=== PATIENT | male | born 1950 | race African-American/Black ===

== ENCOUNTER 2017-07-16 18:46 | Inpatient (IN) | payer OTHER ==
[~2017-07-16] VITALS: Ht 170.2 cm; Wt 63.0 kg
[2017-07-16] MEDS ORDERED: QUET50TA PO (19:03)
[2017-07-16] MEDS ORDERED: ONDA4TAB5 PO (19:03)
[2017-07-16] MEDS ORDERED: TAMS-3 PO (19:03)
[2017-07-16] MEDS ORDERED: HYDR-3326 PO (19:03)
[2017-07-16] MEDS ORDERED: ASPI81TA31 PO (19:03)
[2017-07-16] MEDS ORDERED: OLAN7.5T3 PO (19:03)
[2017-07-16] MEDS ORDERED: ALLO100T PO (19:03)
[2017-07-16] MEDS ORDERED: CARI350T PO (19:03)
--- NOTE | 2017-07-16 19:28 | NUR ---
SILVINO KAHN CLEARED BY DR CALVO
[2017-07-16] MEDS ORDERED: OXYCODONE/APAP 5-325 MG TABLET PO ONE (19:30)
[2017-07-16] MEDS ORDERED: OXYCODONE/APAP 5-325 MG TABLET ONE (19:49)
--- NOTE | 2017-07-16 20:20 | NUR ---
TRANSFERED TO [facility] VIA [facility] VIA WHEELCHAIR. NO DISTRESS NOTED
[2017-07-16 20:30] VITALS: BP 130/81
[2017-07-16] MEDS ORDERED: MAGNESIUM HYDROXIDE 30 ML LIQUID UDC PO PRN (20:30)
[2017-07-16] MEDS ORDERED: ACETAMINOPHEN 325 MG TABLET PO PRN (20:30)
[2017-07-16] MEDS ORDERED: CLONAZEPAM 0.5 MG TABLET PO SCH (20:30)
[2017-07-16] MEDS ORDERED: MAG HYDROX/AL HYDROX/SIMETH 30 ML LIQUID UDC PO PRN (20:30)
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
[2017-07-16] MEDS ORDERED: HYDROCODONE/APAP 5-325MG TABLET PO PRN (22:45)
--- NOTE | 2017-07-17 06:00 | NUR ---
slept 7.75 hours. assisted with AM care, and shower. no distress noted.
[2017-07-17 07:30] VITALS: BP 128/72
[2017-07-17 07:42] LABS: BASOPHILS % (AUTO) 0.7 % (0.0-2.0); EOSINOPHILS # (AUTO) 0.3 K/uL (0.0-0.7); EOSINOPHILS % (AUTO) 7.9 % (0.0-7.0); HEMATOCRIT 40.2 % (36.7-47.1); HEMOGLOBIN 13.7 g/dL (12.5-16.3); LYMPHOCYTES # (AUTO) 1.6 K/uL (20.0-40.0); LYMPHOCYTES % (AUTO) 39.5 % (20.5-51.5); MEAN CORPUSCULAR HEMOGLOBIN 32.1 uug (23.8-33.4); MEAN CORPUSCULAR HGB CONC 34 g/dL (32.5-36.3); MEAN CORPUSCULAR VOLUME 94.6 fL (73.0-96.2); MONOCYTES # (AUTO) 0.3 K/uL (2.0-10.0); MONOCYTES % (AUTO) 7.9 % (0.0-11.0); NEUTROPHILS # (AUTO) 1.8 K/uL (1.8-8.9); PLATELET COUNT (AUTO) 221 K/uL (152-348); RED BLOOD CELL COUNT(AUTO) 4.25 MIL/uL (4.06-5.63); WHITE BLOOD COUNT (AUTO) 4.1 K/uL (3.6-10.2)
[2017-07-17] MEDS: ASPIRIN 81 MG TAB.CHEW PO SCH (08:02)
[2017-07-17] MEDS: ALLOPURINOL 100 MG TABLET PO SCH (08:02)
[2017-07-17 08:19] LABS: BILIRUBIN,TOTAL 0.3 mg/dL (0.2-1.0); CREATININE 1.1 mg/dL (0.6-1.3); MAGNESIUM 1.6 mg/dL (1.8-2.4); POTASSIUM 3.9 mmol/L (3.5-5.1); TOTAL PROTEIN, SERUM 7.2 g/dL (6.4-8.2)
[2017-07-17] MEDS ORDERED: MAGNESIUM OXIDE 400 MG TABLET PO ONE (10:15)
[2017-07-17] MEDS ORDERED: BENZOCAINE/MENTH/CETYLPYRD LOZENGE MM PRN (14:00)
[2017-07-17] MEDS ORDERED: MAGNESIUM HYDROXIDE 30 ML LIQUID UDC PO ONE (14:00)
[2017-07-17 14:13] LABS: THYROID STIMULATING HORMONE 1.198 mIU/mL (0.358-3.740)
[2017-07-17 15:11] VITALS: BP 113/68
[2017-07-17] MEDS: ESCITALOPRAM OXALATE 10 MG TABLET PO SCH (15:11)
[2017-07-17] MEDS: NICOTINE 21 MG/24HR PATCH TD SCH (15:11)
[2017-07-17] MEDS: DOCUSATE SODIUM 100 MG CAPSULE PO SCH ×2 (15:12→20:48)
[2017-07-17] MEDS: HYDROCODONE/APAP 10-325 MG TABLET PO PRN ×2 (15:19→23:28)
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
[2017-07-17] MEDS ORDERED: CARISOPRODOL 350 MG TABLET PO PRN (18:00)
[2017-07-17 20:06] VITALS: BP 104/71
[2017-07-17 20:45] VITALS: BP 120/81
[2017-07-17] MEDS: ATORVASTATIN 10 MG TABLET PO SCH (20:47)
[2017-07-17] MEDS: TAMSULOSIN HCL 0.4 MG CAP.SR.24H PO SCH (20:47)
[2017-07-17] MEDS: OLANZAPINE 2.5 MG TABLET PO SCH (20:49)
--- NOTE | 2017-07-17 22:00 | NUR ---
received to care, watching tv in the activity room, minimally interactive, but able to make his needs known. compliant with medications, and staff direction. denies SI, or desire to harm self. as of 2199, he remains awake, watching tv. no distress noted.
--- NOTE | 2017-07-17 23:28 | NUR ---
remains awake. c/o 8/10 pain to lower back. PRN norco was given, and he went to bed. will continue to monitor closely.
--- NOTE | 2017-07-18 00:10 | NUR ---
appears to be asleep. no distress noted.
--- NOTE | 2017-07-18 06:00 | NUR ---
slept 6.5 hours, total. continues to sleep. no distress noted.
[2017-07-18 07:30] VITALS: BP 100/83
[2017-07-18] MEDS: NICOTINE 21 MG/24HR PATCH TD SCH ×2 (08:13→09:00)
[2017-07-18] MEDS: ESCITALOPRAM OXALATE 10 MG TABLET PO SCH (08:13)
[2017-07-18] MEDS: DOCUSATE SODIUM 100 MG CAPSULE PO SCH ×2 (08:13→20:24)
[2017-07-18] MEDS: ASPIRIN 81 MG TAB.CHEW PO SCH (08:13)
[2017-07-18] MEDS: ALLOPURINOL 100 MG TABLET PO SCH (08:13)
[2017-07-18] MEDS: HYDROCODONE/APAP 10-325 MG TABLET PO PRN ×4 (08:21→15:54)
[2017-07-18] MEDS: CHOLECALCIFEROL 1,000 UNIT TABLET PO SCH (12:08)
[2017-07-18 16:00] VITALS: BP 104/60
[2017-07-18] MEDS: OLANZAPINE 2.5 MG TABLET PO SCH (20:20)
[2017-07-18] MEDS: TAMSULOSIN HCL 0.4 MG CAP.SR.24H PO SCH (20:21)
[2017-07-18] MEDS: ATORVASTATIN 10 MG TABLET PO SCH (20:21)
[2017-07-18] MEDS: CARISOPRODOL 350 MG TABLET PO SCH (20:21)
[2017-07-18 20:41] VITALS: BP 112/67
--- NOTE | 2017-07-18 22:00 | NUR ---
received to care, lying in bed, pleasant upon approach. denies SI, or desire to harm self. c/o 8 lower back pain. routine soma dose was given at bedtime, and, as of 2200, he appears asleep. no distress noted. will continue to monitor closely.
--- NOTE | 2017-07-19 06:00 | NUR ---
slept 9.5 hours, total. continues to sleep. no distress noted.
[2017-07-19 07:30] VITALS: BP 125/78
[2017-07-19] MEDS: NICOTINE 21 MG/24HR PATCH TD SCH (08:49)
[2017-07-19] MEDS: ASPIRIN 81 MG TAB.CHEW PO SCH (08:50)
[2017-07-19] MEDS: HYDROCODONE/APAP 10-325 MG TABLET PO PRN ×3 (08:50→21:39)
[2017-07-19] MEDS: ESCITALOPRAM OXALATE 10 MG TABLET PO SCH (08:50)
[2017-07-19] MEDS: CHOLECALCIFEROL 1,000 UNIT TABLET PO SCH (08:50)
[2017-07-19] MEDS: ALLOPURINOL 100 MG TABLET PO SCH (08:50)
[2017-07-19] MEDS: DOCUSATE SODIUM 100 MG CAPSULE PO SCH ×2 (08:53→20:54)
--- NOTE | 2017-07-19 14:31 | NUR ---
UR Note: SHLOMO called Litzy BALES with [facility] [phone] and left clinicals on voicemail. SHLOMO requested further days, awaiting authorization. Authorization# [id number].
[2017-07-19 15:00] VITALS: BP 112/77
[2017-07-19 20:28] VITALS: BP 127/78
[2017-07-19] MEDS: ATORVASTATIN 10 MG TABLET PO SCH (20:54)
[2017-07-19] MEDS: TAMSULOSIN HCL 0.4 MG CAP.SR.24H PO SCH (20:54)
[2017-07-19] MEDS: CARISOPRODOL 350 MG TABLET PO SCH (20:54)
[2017-07-19] MEDS: TEMAZEPAM 7.5 MG CAPSULE PO PRN (20:54)
[2017-07-19] MEDS: OLANZAPINE 2.5 MG TABLET PO SCH (20:54)
--- NOTE | 2017-07-19 20:59 | NUR ---
GPS/NSG Patient changed his mind, stated he will take it later.
[2017-07-20] MEDS: HYDROCODONE/APAP 10-325 MG TABLET PO PRN ×2 (04:00→10:13)
[2017-07-20 07:30] VITALS: BP 124/88
[2017-07-20 08:00] LABS: BILIRUBIN,TOTAL 0.2 mg/dL (0.2-1.0); MAGNESIUM 1.5 mg/dL (1.8-2.4); PHOSPHOROUS 3.8 mg/dL (2.5-4.9); TOTAL PROTEIN, SERUM 7.2 g/dL (6.4-8.2)
[2017-07-20 08:26] LABS: EOSINOPHILS # (AUTO) 0.4 K/uL (0.0-0.7); MONOCYTES # (AUTO) 0.6 K/uL (2.0-10.0)
[2017-07-20] MEDS: ALLOPURINOL 100 MG TABLET PO SCH (08:35)
[2017-07-20] MEDS: NICOTINE 21 MG/24HR PATCH TD SCH (08:36)
[2017-07-20] MEDS: ASPIRIN 81 MG TAB.CHEW PO SCH (08:36)
[2017-07-20] MEDS: ESCITALOPRAM OXALATE 10 MG TABLET PO SCH (08:36)
[2017-07-20] MEDS: CHOLECALCIFEROL 1,000 UNIT TABLET PO SCH (08:36)
[2017-07-20 08:40] LABS: BASOPHILS % (AUTO) 0.4 % (0.0-2.0); EOSINOPHILS % (AUTO) 5.6 % (0.0-7.0); HEMATOCRIT 38.5 % (36.7-47.1); LYMPHOCYTES # (AUTO) 2.3 K/uL (20.0-40.0); LYMPHOCYTES % (AUTO) 35.4 % (20.5-51.5); MEAN CORPUSCULAR HEMOGLOBIN 31.9 uug (23.8-33.4); MEAN CORPUSCULAR HGB CONC 34 g/dL (32.5-36.3); MEAN CORPUSCULAR VOLUME 94.9 fL (73.0-96.2); MONOCYTES % (AUTO) 8.9 % (0.0-11.0); NEUTROPHILS # (AUTO) 3.2 K/uL (1.8-8.9); NEUTROPHILS % (AUTO) 49.7 % (38.5-71.5); PLATELET COUNT (AUTO) 211 K/uL (152-348); RED BLOOD CELL COUNT(AUTO) 4.06 MIL/uL (4.06-5.63)
[2017-07-20] MEDS: DOCUSATE SODIUM 100 MG CAPSULE PO SCH ×2 (08:41→20:12)
[2017-07-20 08:43] LABS: WHITE BLOOD COUNT (AUTO) 6.4 K/uL (3.6-10.2)
[2017-07-20] MEDS ORDERED: MAGNESIUM OXIDE 400 MG TABLET PO ONE (10:30)
[2017-07-20 15:00] VITALS: BP 122/77
--- NOTE | 2017-07-20 15:21 | NUR ---
UR Note: Spoke with Alejandro BALES with [facility] [phone] who provided authorization starting 07/19/17 through 07/23/17. Review is due on Sunday07/23/17. Authorization# [id number].
[2017-07-20] MEDS: OXYCODONE/APAP 5-325 MG TABLET PO PRN (17:11)
[2017-07-20] MEDS: OLANZAPINE 5 MG TABLET PO SCH (20:11)
[2017-07-20] MEDS: CARISOPRODOL 350 MG TABLET PO SCH (20:12)
[2017-07-20] MEDS: TAMSULOSIN HCL 0.4 MG CAP.SR.24H PO SCH (20:12)
[2017-07-20] MEDS: ATORVASTATIN 10 MG TABLET PO SCH (20:12)
[2017-07-20] MEDS ORDERED: OLANZAPINE 2.5 MG TABLET PO SCH (21:00)
[2017-07-20 21:12] VITALS: BP 124/89
[2017-07-21] MEDS: OXYCODONE/APAP 5-325 MG TABLET PO PRN ×4 (00:09→20:36)
[2017-07-21 07:30] VITALS: BP 95/56
[2017-07-21] MEDS: ASPIRIN 81 MG TAB.CHEW PO SCH (08:27)
[2017-07-21] MEDS: NICOTINE 21 MG/24HR PATCH TD SCH (08:27)
[2017-07-21] MEDS: CHOLECALCIFEROL 1,000 UNIT TABLET PO SCH (08:27)
[2017-07-21] MEDS: ALLOPURINOL 100 MG TABLET PO SCH (08:27)
[2017-07-21] MEDS: ESCITALOPRAM OXALATE 10 MG TABLET PO SCH (08:28)
[2017-07-21] MEDS: DOCUSATE SODIUM 100 MG CAPSULE PO SCH (08:37)
[2017-07-21 15:22] VITALS: BP 118/68
[2017-07-21] MEDS: TAMSULOSIN HCL 0.4 MG CAP.SR.24H PO SCH (20:03)
[2017-07-21] MEDS: OLANZAPINE 5 MG TABLET PO SCH (20:03)
[2017-07-21] MEDS: ATORVASTATIN 10 MG TABLET PO SCH (20:03)
[2017-07-21] MEDS: CARISOPRODOL 350 MG TABLET PO SCH (20:03)
[2017-07-21 20:09] VITALS: BP 114/73
[2017-07-22] MEDS: OXYCODONE/APAP 5-325 MG TABLET PO PRN ×4 (03:50→22:10)
--- NOTE | 2017-07-22 06:50 | NUR ---
PATIENT SLEPT 8.30HRS THROUGH THE NIGHT. DENIES SI, THOUGHTS TO HARM SELF OR A PLAN, PERCOCET PO PRN WAS GIVEN LAST NIGHT AT 2035 AND ANOTHER DOSE THIS MORNING AT 349 FOR LOWER BACK PAIN.
[2017-07-22 07:30] VITALS: BP 117/81
[2017-07-22] MEDS: BOOST PLUS 237 ML LIQUID (RICH CHOCOLATE) PO SCH (09:05)
[2017-07-22] MEDS: ASPIRIN 81 MG TAB.CHEW PO SCH (09:28)
[2017-07-22] MEDS: ALLOPURINOL 100 MG TABLET PO SCH (09:28)
[2017-07-22] MEDS: CHOLECALCIFEROL 1,000 UNIT TABLET PO SCH (09:29)
[2017-07-22] MEDS: ESCITALOPRAM OXALATE 10 MG TABLET PO SCH (09:29)
[2017-07-22] MEDS: NICOTINE 21 MG/24HR PATCH TD SCH (09:29)
[2017-07-22 15:22] VITALS: BP 106/60
[2017-07-22] MEDS: ATORVASTATIN 10 MG TABLET PO SCH (20:16)
[2017-07-22] MEDS: TAMSULOSIN HCL 0.4 MG CAP.SR.24H PO SCH (20:16)
[2017-07-22] MEDS: CARISOPRODOL 350 MG TABLET PO SCH (20:17)
[2017-07-22] MEDS: OLANZAPINE 5 MG TABLET PO SCH (20:19)
[2017-07-22 20:22] VITALS: BP 116/65
[2017-07-23] MEDS: TEMAZEPAM 7.5 MG CAPSULE PO PRN (01:33)
[2017-07-23 07:30] VITALS: BP 116/73
[2017-07-23] MEDS: ESCITALOPRAM OXALATE 10 MG TABLET PO SCH (08:51)
[2017-07-23] MEDS: NICOTINE 21 MG/24HR PATCH TD SCH (08:51)
[2017-07-23] MEDS: CHOLECALCIFEROL 1,000 UNIT TABLET PO SCH (08:51)
[2017-07-23] MEDS: ASPIRIN 81 MG TAB.CHEW PO SCH (08:51)
[2017-07-23] MEDS: ALLOPURINOL 100 MG TABLET PO SCH (08:51)
[2017-07-23] MEDS: OXYCODONE/APAP 5-325 MG TABLET PO PRN ×2 (08:52→15:59)
[2017-07-23] MEDS: BOOST PLUS 237 ML LIQUID (RICH CHOCOLATE) PO SCH (08:53)
--- NOTE | 2017-07-23 15:37 | NUR ---
DC Note: Patient will be discharged to [facility] [[address] [place] [address]; [phone]] via taxi at 4:00 pm. Patient will be provided with a taxi voucher. Spoke with Zaynab at the facility who stated they would accept the patient today. Patient will follow-up with (Employment Services Director) [[address] [place] [address]; ]. Patient was provided with a list of contracted outpatient referrals, the list included [[address], [place], [place],;[phone]], [[address] [place], [place]; [phone]], and [[address], [place], [place],;[phone]]. For smoking cessation, patient was encouraged to presented at [facility] [[address], [place]] on 07/26/17 at 7:00 pm. Patient was encouraged to present at [facility] [[address] [facility] [address] ] at 9:00 am 07/24/17 for intake screening.
[2017-07-23 16:00] VITALS: BP 137/79
--- NOTE | 2017-07-23 16:08 | NUR ---
UR Note: SHLOMO called Alejandro BALES with N [phone] and left discharge clinicals on confidential voicemail. Authorization# [id number].
--- NOTE | 2017-07-23 18:00 | NUR ---
GPS: Nursing Notes: Discharge Notes: Patient is awake and responding to his name, cooperative with nursing care, compliant with his medications, denies any SI/HI, denies any AH/VH, denies any pain or discomfort at this time, denies any SOB, discharge to [facility] at [address] [place] [address] , [facility] per [facility] request, prescriptions were fax to facility's pharmacy and fax # , spoke with pharmacist Salima, whom received prescriptions via fax, transported to facility via [employer]. Patient will follow-up with (Rubber Factory Worker) [[address] [place] [address]; ]. Patient was provided with a list of contracted outpatient referrals, the list included [[address], [place], [place],;[phone]], [[address] [place], [place]; [phone]], and [[address] [facility], [place], [place],;[phone]]. For smoking cessation, patient was encouraged to presented at [facility] [[address], [place]] on 07/26/17 at 7:00 pm. Patient was encouraged to present at [facility] [[address] [facility] [address] ] at 9:00 am 07/24/17 for intake screening.
[2017-07-24] MEDS ORDERED: ESCITALOPRAM OXALATE 10 MG TABLET PO SCH (09:00)
== END 2017-07-23 18:00 | DRG 885 ==
LOC: ER 18:51 → GPS 19:59
PROVIDERS: ADMIT Psychiatry & Neurology Psychiatry; ATTEND Internal Medicine
DX: F31.5 Bipolar disorder, current episode depressed, severe, with psychotic features (principal); E87.0 Hyperosmolality and hypernatremia; E83.42 Hypomagnesemia; I48.91 Unspecified atrial fibrillation; E88.09 Other disorders of plasma-protein metabolism, not elsewhere classified; G89.4 Chronic pain syndrome; Z91.5 Personal history of self-harm; I25.2 Old myocardial infarction; N40.0 Benign prostatic hyperplasia without lower urinary tract symptoms; Z79.899 Other long term (current) drug therapy; M10.9 Gout, unspecified; K59.00 Constipation, unspecified; I25.10 Atherosclerotic heart disease of native coronary artery without angina pectoris; F17.210 Nicotine dependence, cigarettes, uncomplicated; G47.9 Sleep disorder, unspecified; M62.838 Other muscle spasm; E78.5 Hyperlipidemia, unspecified; E83.52 Hypercalcemia; E55.9 Vitamin D deficiency, unspecified; F14.10 Cocaine abuse, uncomplicated; I10 Essential (primary) hypertension; Z79.82 Long term (current) use of aspirin
CPT/HCPCS: 36415; 71010; 82306; 83735; 84100; 84153; 84443; 85025; 97110; 97116; 97530; A4663

== ENCOUNTER 2018-01-03 19:38 | Inpatient (IN) | payer MEDICARE, OTHER ==
[~2018-01-03] VITALS: Ht 170.2 cm; Wt 76.3 kg
[~2018-01-03 19:38] MED LIST: ALLO100T PO; ASPI81TA31 PO; CARI350T PO; HYDR-3326 PO; OLAN7.5T3 PO; ONDA4TAB5 PO; TAMS-3 PO
--- NOTE | 2018-01-03 19:47 | NUR ---
pt brought in by RA90 c/o chest pain. pt aox4, able to speak in clear and complete sentences. no sob, EKG showed NSR.
[2018-01-03] MEDS ORDERED: ATOR10TA PO (19:53)
[2018-01-03] MEDS ORDERED: CHOL100045 PO (19:53)
[2018-01-03] MEDS ORDERED: ESCI20TA PO (19:53)
[2018-01-03] MEDS ORDERED: CLOP75TA33 PO (19:53)
[2018-01-03] MEDS ORDERED: METO25TA6 PO (19:53)
[2018-01-03] MEDS ORDERED: TRAM50TA2 PO (19:53)
[2018-01-03] MEDS ORDERED: BACL10TA PO (19:53)
[2018-01-03] MEDS ORDERED: OLAN10TA3 PO (19:53)
[2018-01-03] MEDS ORDERED: DIPH1TAB PO (19:53)
[2018-01-03 20:14] LABS: BASOPHILS % (AUTO) 0.4 % (0.0-2.0); EOSINOPHILS # (AUTO) 0.4 K/uL (0.0-0.7); EOSINOPHILS % (AUTO) 6.6 % (0.0-7.0); HEMATOCRIT 36.2 % (36.7-47.1); HEMOGLOBIN 11.9 g/dL (12.5-16.3); LYMPHOCYTES # (AUTO) 2.6 K/uL (20.0-40.0); MEAN CORPUSCULAR HEMOGLOBIN 31.7 uug (23.8-33.4); MEAN CORPUSCULAR HGB CONC 33 g/dL (32.5-36.3); MEAN CORPUSCULAR VOLUME 96.3 fL (73.0-96.2); MONOCYTES # (AUTO) 0.8 K/uL (2.0-10.0); MONOCYTES % (AUTO) 13.4 % (0.0-11.0); NEUTROPHILS # (AUTO) 2.3 K/uL (1.8-8.9); NEUTROPHILS % (AUTO) 36.6 % (38.5-71.5); PLATELET COUNT (AUTO) 209 K/uL (152-348); RED BLOOD CELL COUNT(AUTO) 3.76 MIL/uL (4.06-5.63); WHITE BLOOD COUNT (AUTO) 6.2 K/uL (3.6-10.2)
[2018-01-03 20:21] LABS: CREATININE 1.1 mg/dL (0.6-1.3); POTASSIUM 3.5 mmol/L (3.5-5.1)
[2018-01-03 20:33] LABS: BILIRUBIN,DIRECT 0.1 mg/dL (0.0-0.2); BILIRUBIN,TOTAL 0.2 mg/dL (0.2-1.0); TOTAL PROTEIN, SERUM 6.8 g/dL (6.4-8.2)
[2018-01-03] MEDS ORDERED: KETAMINE HCL 500 MG/10 ML INJ IV ONE (21:15)
[2018-01-03] MEDS ORDERED: KETAMINE HCL 500 MG/10 ML INJ ONE (21:17)
--- NOTE | 2018-01-03 22:00 | NUR ---
Patient is resting comfortably in bed with eyes closed
[2018-01-03] MEDS ORDERED: NORMAL SALINE FLUSH 10 ML DISP.SYRIN ONE (22:38)
[2018-01-03] MEDS ORDERED: IOHEXOL 350 100 ML INFUS..BTL ONE (22:38)
[2018-01-03] MEDS ORDERED: IV NORMAL SALINE 100 ML ONE (22:38)
--- NOTE | 2018-01-04 | NUR ---
Patient is resting comfortably in bed with eyes closed. no signs of acute distress, VSS.
--- NOTE | 2018-01-04 01:20 | NUR ---
bed assignment received at 0030. report given to inpt nurse Bridgett BREAUX at 0120.
[2018-01-04 01:45] VITALS: BP_SYST 115; BP_SYST 130; BP_DIAS 71; BP_DIAS 74
--- NOTE | 2018-01-04 01:45 | NUR ---
ADMITTED NEW PT.TO ROOM 219,ALERT,ORIENTED ,NO ACUTE DISTRESS NOTED, NSR ON MONITOR,BP WNL,PATIENT STATES NO CHEST PAIN AT PRESENT TIMES,STILL WITH GENERALIZED PAIN, PAIN MEDICATION WILL ADMIN PER PATIENT REQUESTED.
[2018-01-04] MEDS ORDERED: ESCITALOPRAM OXALATE 10 MG TABLET PO ONE (02:00)
[2018-01-04] MEDS ORDERED: Z GUARD REMEDY PASTE 57 GM TUBE TOP PRN (02:15)
[2018-01-04] MEDS ORDERED: ONDANSETRON 4 MG/2 ML VIAL IV PRN (02:15)
[2018-01-04] MEDS ORDERED: ACETAMINOPHEN 325 MG TABLET PO PRN (02:15)
[2018-01-04] MEDS: TRAMADOL HCL 50 MG TABLET PO PRN (02:29)
[2018-01-04] MEDS: IPRATROPIUM BROMIDE 0.5 MG/2.5 ML NEBU NEB SCH ×6 (03:30→23:18)
[2018-01-04] MEDS: ALBUTEROL SULFATE 2.5 MG/ 0.5 ML NEBU NEB SCH ×6 (03:30→23:18)
[2018-01-04 04:00] VITALS: BP 132/62
--- NOTE | 2018-01-04 04:00 | NUR ---
Pt awake, alert. No respiratory distress noted. HHN tx pt refused. drop wire aligner Cindy notified.
--- NOTE | 2018-01-04 04:30 | NUR ---
ASSUMED CARE AT 0430.PATIENT IN BED ON AND OFF ASLEEP . NO PAIN OR DISCOMFORT VERBALIZED .BREATHING EVEN AND UNLABORED NO SOB.CALL LIGHT PLACE WITH IN REACH AND URINAL WITH IN REACH .
[2018-01-04] MEDS: methylPREDNISolone SOD SUCC 125 MG/2 ML VIAL IV SCH ×3 (05:30→21:58)
[2018-01-04] MEDS: ONDANSETRON HCL 4 MG TABLET PO SCH ×3 (05:31→15:46)
--- NOTE | 2018-01-04 06:13 | NUR ---
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
--- NOTE | 2018-01-04 07:58 | NUR ---
report received from Clinton BREAUX . adriano was admitted 01/04 for chest pains. tele sinus rhythm 69/min. painfree since admission. saline lock times 2 . no IV fluid ordered Addendum: 01/04/18 at 0758 by JOVANA ALEXANDER RN Amended: Links added.
--- NOTE | 2018-01-04 08:00 | NUR ---
refused blood draws for this am. Addendum: 01/04/18 at 0800 by JOVANA ALEXANDER RN Amended: Links added.
[2018-01-04] MEDS: ENOXAPARIN SODIUM 40 MG/0.4 ML DISP.SYRIN SQ SCH (08:39)
[2018-01-04] MEDS: ALLOPURINOL 100 MG TABLET PO SCH (08:40)
[2018-01-04] MEDS: CHOLECALCIFEROL 1,000 UNIT TABLET PO SCH (08:40)
[2018-01-04] MEDS: HYDROCODONE/APAP 5-325MG TABLET PO SCH ×2 (08:40→13:10)
[2018-01-04] MEDS: METOPROLOL TARTRATE 25 MG TABLET PO SCH ×2 (08:40→20:40)
[2018-01-04] MEDS: BACLOFEN 10 MG TABLET PO SCH ×3 (08:40→15:45)
[2018-01-04] MEDS: ASPIRIN 81 MG TAB.CHEW PO SCH (08:40)
--- NOTE | 2018-01-04 08:51 | NUR ---
blood drawn from saline lock left AC. Addendum: 01/04/18 at 0851 by JOVANA ALEXANDER RN Amended: Links added.
[2018-01-04] MEDS ORDERED: ASPIRIN EC 81 MG TABLET.DR PO SCH (09:00)
[2018-01-04] MEDS: CLOPIDOGREL 75 MG TABLET PO SCH (10:54)
--- NOTE | 2018-01-04 10:59 | NUR ---
patient had shannonco earlier. verbalized not relieved from back pains. prefers oxycontin 30 mg 3times a day. will talk to MD. Addendum: 01/04/18 at 1059 by JOVANA ALEXANDER RN Amended: Links added.
[2018-01-04 11:23] VITALS: BP 133/76
--- NOTE | 2018-01-04 13:59 | NUR ---
call to dr Karson messer medication. prefers oxycontin instead of [place] Addendum: 01/04/18 at 1400 by JOVANA ALEXANDER RN Amended: Links added.
--- NOTE | 2018-01-04 14:13 | NUR ---
call to answering service of [facility] for patient's persistent c/o back pain. Addendum: 01/04/18 at 1413 by JOVANA ALEXANDER RN Amended: Links added.
[2018-01-04] MEDS ORDERED: OXYCODONE HCL 10 MG TAB.SR.12H PO SCH ×2 (14:30→15:00)
[2018-01-04 15:00] VITALS: BP 112/61
[2018-01-04] MEDS: CARISOPRODOL 350 MG TABLET PO SCH (15:45)
[2018-01-04] MEDS: MORPHINE SULFATE 2 MG/1 ML DISP.SYRIN IV PRN ×2 (15:46→19:36)
--- NOTE | 2018-01-04 15:51 | NUR ---
medicated for back pain scale patient new order is for oxycontin 30 mg po q12 hrs starting tonight plus morphine IV prn. Addendum: 01/04/18 at 1551 by JOVANA ALEXANDER RN Amended: Links added.
[2018-01-04] MEDS: NICOTINE 21 MG/24HR PATCH TD SCH (17:26)
--- NOTE | 2018-01-04 17:30 | NUR ---
nicotine patch started . patient smoker 2ppd Addendum: 01/04/18 at 1757 by JOVANA ALEXANDER RN Amended: Links added.
--- NOTE | 2018-01-04 19:20 | NUR ---
Received patient appears sleeping but easily arousable. Tolerable low back pain presented. Aware pain medication when due/next schedule. Denies chest pain at this time. Continue care as planned.
--- NOTE | 2018-01-04 19:30 | NUR ---
report given to Elvia RN Addendum: 01/04/18 at 1930 by JOVANA ALEXANDER RN Amended: Links added.
[2018-01-04] MEDS: OXYCODONE HCL 10 MG TAB.SR.12H PO SCH (20:40)
[2018-01-04] MEDS ORDERED: ATORVASTATIN 40 MG TABLET PO SCH (21:00)
[2018-01-04] MEDS ORDERED: TAMSULOSIN HCL 0.4 MG CAP.SR.24H PO SCH (21:00)
[2018-01-04] MEDS ORDERED: ATORVASTATIN 10 MG TABLET PO SCH (21:00)
[2018-01-04] MEDS ORDERED: OLANZAPINE 5 MG TABLET PO ONE (21:00)
[2018-01-04 21:07] VITALS: BP 121/69
[2018-01-05] MEDS: ONDANSETRON HCL 4 MG TABLET PO SCH ×4 (00:17→17:01)
[2018-01-05] MEDS: MORPHINE SULFATE 2 MG/1 ML DISP.SYRIN IV PRN ×5 (00:21→16:54)
[2018-01-05 01:00] VITALS: BP 131/81
[2018-01-05] MEDS: TRAMADOL HCL 50 MG TABLET PO PRN (01:03)
[2018-01-05] MEDS: ALBUTEROL SULFATE 2.5 MG/ 0.5 ML NEBU NEB SCH ×5 (02:51→19:21)
[2018-01-05] MEDS: IPRATROPIUM BROMIDE 0.5 MG/2.5 ML NEBU NEB SCH ×5 (02:51→19:21)
--- NOTE | 2018-01-05 02:51 | NUR ---
PT REFUSING NEB RX AT THIS TIME, PT WANTS TOO SLEEP, PT ON ROOM AIR . 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
[2018-01-05] MEDS ORDERED: MORPHINE SULFATE 4 MG/1 ML DISP.SYRIN ONE (03:55)
[2018-01-05 05:35] VITALS: BP 115/63
[2018-01-05] MEDS: methylPREDNISolone SOD SUCC 125 MG/2 ML VIAL IV SCH ×2 (05:57→13:17)
--- NOTE | 2018-01-05 06:13 | NUR ---
SHIFT END REPORT: VS stable. Slept in between care. No complaint of chest pain presented. Medicated 3x of Morphine and Ultram x 1 for low back pain complaint with moderate effect. Adequate po fluid intake noted. Anticipated and attended all needs. Urinal at bedside within reach. Voided good. No significant event reported all night. Continue current plan of care.
[2018-01-05 07:59] LABS: BASOPHILS % (AUTO) 0.1 % (0.0-2.0); HEMATOCRIT 38.7 % (36.7-47.1); HEMOGLOBIN 12.7 g/dL (12.5-16.3); LYMPHOCYTES % (AUTO) 6.4 % (20.5-51.5); MEAN CORPUSCULAR HEMOGLOBIN 31.6 uug (23.8-33.4); MEAN CORPUSCULAR HGB CONC 33 g/dL (32.5-36.3); MEAN CORPUSCULAR VOLUME 95.8 fL (73.0-96.2); MONOCYTES # (AUTO) 0.4 K/uL (2.0-10.0); MONOCYTES % (AUTO) 2.7 % (0.0-11.0); NEUTROPHILS # (AUTO) 13.8 K/uL (1.8-8.9); NEUTROPHILS % (AUTO) 90.8 % (38.5-71.5); PLATELET COUNT (AUTO) 212 K/uL (152-348); RED BLOOD CELL COUNT(AUTO) 4.03 MIL/uL (4.06-5.63); WHITE BLOOD COUNT (AUTO) 15.2 K/uL (3.6-10.2)
[2018-01-05 08:06] LABS: BILIRUBIN,TOTAL 0.2 mg/dL (0.2-1.0); CREATININE 1.1 mg/dL (0.6-1.3); MAGNESIUM 1.9 mg/dL (1.8-2.4); PHOSPHOROUS 2.9 mg/dL (2.5-4.9); POTASSIUM 4.1 mmol/L (3.5-5.1)
[2018-01-05] MEDS: BACLOFEN 10 MG TABLET PO SCH ×3 (08:22→16:32)
[2018-01-05] MEDS: ALLOPURINOL 100 MG TABLET PO SCH (08:22)
[2018-01-05] MEDS: ASPIRIN 81 MG TAB.CHEW PO SCH (08:22)
[2018-01-05 08:23] LABS: THYROID STIMULATING HORMONE 0.323 mIU/mL (0.358-3.740)
[2018-01-05] MEDS: CHOLECALCIFEROL 1,000 UNIT TABLET PO SCH (08:23)
[2018-01-05] MEDS: CLOPIDOGREL 75 MG TABLET PO SCH (08:23)
[2018-01-05] MEDS: METOPROLOL TARTRATE 25 MG TABLET PO SCH (08:24)
[2018-01-05] MEDS: OXYCODONE HCL 10 MG TAB.SR.12H PO SCH (08:24)
[2018-01-05] MEDS: ENOXAPARIN SODIUM 40 MG/0.4 ML DISP.SYRIN SQ SCH (08:27)
[2018-01-05] MEDS: NICOTINE 21 MG/24HR PATCH TD SCH (08:27)
--- NOTE | 2018-01-05 09:00 | NUR ---
PATIENT IS AWAKE ALERT AND ORIENTED REMAIN ON TELEMETRY MONITORING ORDERED SR WITH NO ECTOPY.CONTINUES TO REQUEST FOR PAIN MEDICATIONS GIVEN ORDERED AND ITS HELPFUL AT THIS TIME.MADE COMFORTABLE AND WILL CONTINUE TO OBSERVE.
[2018-01-05 11:48] VITALS: BP 115/65
[2018-01-05 15:28] VITALS: BP 119/65
--- NOTE | 2018-01-05 16:00 | NUR ---
PER THE SECURITY TECHNICIAN/FIELD TECHNICIAN PATIENT WILL BE DISCHARGED TODAY BACK TO THE [facility] LIVING PATIENT [facility] AWAITING FOR DISCHARGE ORDERS FROM DR WEAVER.PATIENT WILL BE TRANSPORTED BY THE AMBULANCE AND AMBULANCE WILL BE ARRANGED BY THE PATIENTS INSURANCE.
[2018-01-05] MEDS: CARISOPRODOL 350 MG TABLET PO SCH (17:01)
[2018-01-05] MEDS ORDERED: OXYC30TA2 PO (19:46)
[2018-01-05 20:18] VITALS: BP 120/61
--- NOTE | 2018-01-05 20:38 | NUR ---
PT DISCHARGED AT THIS TIME FROM TELEMETRY ON THE WAY TO [facility]. ALL BELONGINGS TAKEN. VITAL SIGNS ARE WNL. REPORT GIVEN TO EMT.
== END 2018-01-05 20:39 | DRG 206 ==
LOC: ER 19:38 → TELE 01-04 00:20
PROVIDERS: ADMIT Nurse Practitioner Acute Care; ATTEND Internal Medicine
DX: M94.0 Chondrocostal junction syndrome [Tietze] (principal); E44.0 Moderate protein-calorie malnutrition; E87.0 Hyperosmolality and hypernatremia; F11.20 Opioid dependence, uncomplicated; I11.9 Hypertensive heart disease without heart failure; J98.11 Atelectasis; R73.03 Prediabetes; J43.2 Centrilobular emphysema; F20.9 Schizophrenia, unspecified; G89.4 Chronic pain syndrome; F17.210 Nicotine dependence, cigarettes, uncomplicated; Z68.26 Body mass index [BMI] 26.0-26.9, adult; I25.2 Old myocardial infarction; Z79.82 Long term (current) use of aspirin; Z79.899 Other long term (current) drug therapy; Z91.5 Personal history of self-harm; F31.9 Bipolar disorder, unspecified; M10.9 Gout, unspecified; N40.0 Benign prostatic hyperplasia without lower urinary tract symptoms; I25.10 Atherosclerotic heart disease of native coronary artery without angina pectoris; E78.5 Hyperlipidemia, unspecified; E55.9 Vitamin D deficiency, unspecified; M19.90 Unspecified osteoarthritis, unspecified site; I70.0 Atherosclerosis of aorta; E05.90 Thyrotoxicosis, unspecified without thyrotoxic crisis or storm; M50.30 Other cervical disc degeneration, unspecified cervical region; M62.838 Other muscle spasm; M46.90 Unspecified inflammatory spondylopathy, site unspecified; G47.9 Sleep disorder, unspecified
CPT/HCPCS: 36415; 70030-TC; 71045; 71275; 83735; 84100; 84443; 85025; 85730; 93005; 93307; 94640; 94664; A4663; J1650; J2270; J2405; J2930; J3490; J3590; J8499; Q0162; Q9967